=== PATIENT | female | born 1955 | race Caucasian/White ===

== ENCOUNTER 2018-08-20 06:25 | Day surgery (SDC) | payer BC ==
[2018-08-07 10:45] VITALS: BMI 37.2
[2018-08-20] MEDS ORDERED: BUPIVACAINE HCL/PF 0.5% (5MG/ML) 10 ML VIAL ONE (07:08)
[2018-08-20] MEDS ORDERED: LIDOCAINE HCL 1% PRESERVATIVE FREE - 30ML VIAL ONE (07:08)
[2018-08-20] MEDS ORDERED: PROPOFOL 20 ML ONE ×2 (07:24)
[2018-08-20] MEDS ORDERED: SUCCINYLCHOLINE CHLORIDE 200 MG/10 ML VIAL ONE (07:25)
[2018-08-20] MEDS ORDERED: MIDAZOLAM HCL 2 MG/2 ML SINGLE DOSE VIAL ONE ×2 (07:25→07:37)
[2018-08-20] MEDS ORDERED: CLINDAMYCIN PHOSPHATE 600 MG/4 ML VIAL ONE (07:29)
[2018-08-20] MEDS ORDERED: DEXAMETHASONE SOD PHOSPHATE 4 MG/1 ML VIAL ONE (07:30)
[2018-08-20] MEDS ORDERED: KETOROLAC TROMETHAMINE 30 MG/1 ML VIAL ONE (07:30)
[2018-08-20] MEDS ORDERED: ONDANSETRON 4 MG/2 ML VIAL ONE (07:30)
[2018-08-20] MEDS ORDERED: BUPIVACAINE HCL/PF 0.5% (5MG/ML) 10 ML VIAL IJ ONE (07:54)
[2018-08-20] MEDS ORDERED: LIDOCAINE HCL 1%, 10 MG/ML (20ML VIAL) INF ONE (07:54)
[2018-08-20] MEDS ORDERED: ACETAMINOPHEN WITH CODEINE 300MG/30MG TABLET PO PRN (08:58)
[2018-08-20 09:11] VITALS: TEMP 98.4
--- NOTE | 2018-08-20 09:20 | OP ---
DATE OF OPERATION: 08/20/2018 PREOPERATIVE DIAGNOSIS: Hammertoe, right 2nd toe. POSTOPERATIVE DIAGNOSIS: Hammertoe, right 2nd toe. OPERATIVE PROCEDURE: A proximal interphalangeal joint fusion of the right 2nd toe with a K-wire, 0.045. OPERATION IN DETAIL: The patient was taken to the operating table and placed on the operating table in supine position. Usual aseptic prepping and draping were performed and completed after a total of 10 mL were injected into the operative site for local anesthesia. Following this, prepping and draping were completed. The extremity of the right foot was elevated for a full 3 minutes to exsanguinate the leg, and an ankle out was inflated to 250 mmHg. The extremity was lowered to the operating table. Two longitudinal, semi-elliptical incisions were placed over the proximal interphalangeal joint, excising a wedge of skin. Medial and lateral collateral ligaments were then incised after transverse incision was effectively placed over the proximal interphalangeal joint, delivering the head into the dorsal interspace. The cartilage was excised from the head and the base of the middle phalanx using a saw. A 0.045 Alda wire was retrograded into the distal end of the toe and then back into the metatarsal head using a mini C-arm. Photos were taken to identify placement of the K-wire. The area was flushed with sterile amounts of copious saline solution. The tendon was reattached with number 3-0 Vicryl. Skin was reapproximated and closed with number 4-0 nylon. Dry sterile dressing was applied to the operative foot. The tourniquet was released, and all vital signs were noted to be intact at bandaging. BASILIO [id number]
[2018-08-20 09:52] VITALS: BP 110/76; PULSE 76
[2018-08-20] MEDS ORDERED: oxyCODONE HCL 5 MG TABLET PO PRN ×2 (11:02)
[2018-08-20] MEDS ORDERED: PROMETHAZINE HCL 25 MG/1 ML VIAL IVPUSH PRN (11:02)
[2018-08-20] MEDS ORDERED: ONDANSETRON 4 MG/2 ML VIAL IVPUSH PRN (11:02)
--- NOTE | 2018-08-28 14:09 | PATH ---
Surgical Pathology Report Patient Name: BEATRIZ CARUSO [facility]. Rec. #: [id number] /Age/Gender: 1955 (Age: 62) / F Account: [id number] Location: [facility] Taken: 08/20/2018 Received: 08/20/2018 Reported: 08/28/2018 Physicians: Yue Parker Specimen(s) Received RIGHT SECOND TOE BONE, SKIN AND TENDON Clinical History Hammertoe second toe right foot Final Diagnosis BONE, SKIN AND TENDON, RIGHT SECOND TOE, CORRECTION OF HAMMER TOE: PORTIONS OF BONE, CARTILAGE, SKIN AND FIBROCOLLAGENOUS TISSUE WITH NO PATHOLOGIC FINDINGS. Electronically Signed Joan Figueroa M.D. Gross Description Received in formalin labeled "right second toe bone, skin and tendon," is a 1.1 x 0.7 x 0.4 cm bhatt, irregular portion of bone as well as a 2.5 x 0.5 cm bhatt, unremarkable skin shave. Also received within the same container is a 1.1 x 0.9 x 0.2 cm aggregate of bhatt soft tissue fragments, possibly consistent with tendon. Animal Tech sections are submitted in one cassette, following decalcification. 08/21/201808/21/2018
== END 2018-08-20 09:56 | disposition home or self-care (01) ==
LOC: FASU 06:25
PROVIDERS: ATTEND Podiatrist
PROC: 0SRP0JZ Replacement of Right Toe Phalangeal Joint with Synthetic Substitute, Open Approach (ICD-10-PCS; principal; 2018-08-20 07:30)
DX: M20.41 Other hammer toe(s) (acquired), right foot (principal)
CPT/HCPCS: 73630-TC-RT-FY; 88304-TC; 88311-TC; 94760

== ENCOUNTER 2023-08-09 13:35 | Emergency (ER) | payer BC, MEDICARE ==
[2023-08-09 13:40] VITALS: BP 118/68; PULSE 93; RESP 17; TEMP 98.1; BMI 31.1
[2023-08-09] MEDS ORDERED: DIPHTH,PERTUSS(ACELL),TET 0.5 ML DISP.SYRIN IM ONE (14:02)
[2023-08-09] MEDS: DIPHTH,PERTUSS(ACELL),TET 0.5 ML DISP.SYRIN IM ONE (14:03)
== END 2023-08-09 15:03 | disposition home or self-care (01) ==
LOC: FER 13:35
PROC: 3E0234Z Introduction of Serum, Toxoid and Vaccine into Muscle, Percutaneous Approach (ICD-10-PCS; principal; 2023-08-09)
DX: S81.811A Laceration without foreign body, right lower leg, initial encounter (principal); I83.91 Asymptomatic varicose veins of right lower extremity; W26.8XXA Contact with other sharp object(s), not elsewhere classified, initial encounter; Y93.E8 Activity, other personal hygiene
CPT/HCPCS: 90715; 99282-25